=== PATIENT | male | born 1945 | race Caucasian/White ===

== ENCOUNTER 2023-11-03 07:42 | Outpatient (CLI) | payer MEDICARE, SELFPAY ==
--- NOTE | ~2023-11-03 | PE_ITS ---
EXAMINATION: PET skull to mid thigh DATE: 11/03/2023 10:22 INDICATION: Lung nodule. TECHNIQUE: Blood glucose level was 97 mg/dL. 9.913 mCi of 18-fluorodeoxyglucose (18-FDG) was administ ered i.v. Low dose computed tomography (CT) images were acquired from the base of the brain to the pr oximal thighs for attenuation correction and anatomic localization. Automated exposure control was em ployed. Dose-length product (DLP) was 1081 mGy-cm. Positron emission tomography (PET) images were acq uired in the same distribution. COMPARISON: None FINDINGS: Head/neck: There are no pathologically enlarged lymph nodes. Chest: There is mild emphysema. There is an 11 mm nodule in right lower lobe with maximum SUV of 1.4. There is a 9 mm nodule in left lower lobe with maximum SUV of 4.1. No pleural effusion. The heart si ze is normal. There are coronary artery calcifications. No pericardial effusion. Abdomen/pelvis/proximal thighs: The liver, spleen, gallbladder, pancreas, adrenal glands, and right k idney are normal. There is a 2.9 cm mass of left kidney measuring soft tissue attenuation. There is c alcified atherosclerosis of the aorta and many of the other arteries. The prostate is moderately enla rged. There is a left inguinal hernia containing fat. There is diverticulosis of the colon without ev idence of diverticulitis. There are no dilated loops of bowel. The appendix is normal. There are no p athologically enlarged lymph nodes. There is no free intraperitoneal fluid. There is no osseous malig tamika. IMPRESSION: 1. 9 mm nodule in left lung lower lobe with maximum SUV of 4.1, which may be infection or malignancy. Noncontrast low-dose chest CT is recommended in 3 months. 2. 11 mm nodule in right lung lower lobe with maximum SUV of 1.4, probably benign. Noncontrast low-do se chest CT is recommended in 3-6 months. 3. 2.9 cm left kidney mass, which may be a hemorrhagic cyst or renal cell carcinoma. Abdomen CT witho ut and with contrast is recommended. Reviewed, dictated and finalized at location A. IMPRESSION: 1. 9 mm nodule in left lung lower lobe with maximum SUV of 4.1, which may be in fection or malignancy. Noncontrast low-dose chest CT is recommended in 3 months . 2. 11 mm nodule in right lung lower lobe with maximum SUV of 1.4, probably barry gn. Noncontrast low-dose chest CT is recommended in 3-6 months. 3. 2.9 cm left kidney mass, which may be a hemorrhagic cyst or renal cell carci noma. Abdomen CT without and with contrast is recommended.
[2023-11-03 08:06] LABS: Glucose Point of Care 97 mg/dl (65-105)
== END 2023-11-03 07:43 | disposition home or self-care (01) ==
PROVIDERS: Visit Provider Urology
DX: R91.1 Solitary pulmonary nodule (principal)
CPT/HCPCS: 78815; A9552